=== PATIENT | male | born 2000 | race Caucasian/White ===

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

== ENCOUNTER 2023-01-27 17:41 | Emergency (ER) | payer SELFPAY ==
[2023-01-27] MEDS ORDERED: Ketorolac 30 MG/ML SDV IVPUSH ONE (17:58)
[2023-01-27] MEDS ORDERED: Ondansetron 4 MG/2 ML SDV IVPUSH ONE (17:58)
[2023-01-27] MEDS ORDERED: LORazepam 2 MG/ML SDV IVPUSH ONE (17:58)
[2023-01-27] MEDS ORDERED: Sodium Chloride 0.9% 1,000 ML IV ONE (17:58)
== END 2023-01-27 19:45 | disposition home or self-care (01) ==
LOC: MW.ED 17:41
DX: G43.909 Migraine, unspecified, not intractable, without status migrainosus (principal)
CPT/HCPCS: 70450; 72125; 96361; 96374; 96375; 99284; J1885; J2060; J2405; J7030

== ENCOUNTER 2024-08-25 12:44 | Emergency (ER) | payer SELFPAY ==
[2024-08-25] MEDS: Benzocaine 20% Topical Spray UD MUCMEM ONE (14:01)
[2024-08-25] MEDS: Amoxicillin/Clavulanate K 875-125 MG Tab PO ONE (14:02)
[2024-08-25] MEDS: Lidocaine 2% Viscous Solution 15 ML UD PO ONE (14:02)
== END 2024-08-25 14:04 | disposition home or self-care (01) ==
LOC: MW.ED 12:44
DX: K08.89 Other specified disorders of teeth and supporting structures (principal); Z79.899 Other long term (current) drug therapy
CPT/HCPCS: 99282; A9270

== ENCOUNTER 2024-10-12 13:49 | Emergency (ER) | payer SELFPAY | END 2024-10-12 15:51 | disposition home or self-care (01) | LOC: MW.ED 13:49 | DX: K03.81 Cracked tooth (principal); Z75.8 Other problems related to medical facilities and other health care; Z79.899 Other long term (current) drug therapy | CPT/HCPCS: 99282; 99283 ==

== ENCOUNTER 2025-05-06 22:26 | Emergency (ER) | payer OTHER | END 2025-05-07 01:45 | disposition home or self-care (01) | LOC: MW.ED 22:26 | DX: S82.832A Other fracture of upper and lower end of left fibula, initial encounter for closed fracture (principal); V48.1XXA Car passenger injured in noncollision transport accident in nontraffic accident, initial encounter; Y93.89 Activity, other specified | CPT/HCPCS: 29515; 70450; 73590; 73620; 99284; A9270 ==